=== PATIENT | female | born 1950 | race Caucasian/White ===

== ENCOUNTER 2021-05-30 16:04 | Emergency (ER) | payer OTHER, SELFPAY ==
--- NOTE | ~2021-05-30 | XR_ITS ---
EXAMINATION: XR CHEST CLINICAL INFORMATION: Resolved chest pain COMPARISON: None TECHNIQUE: Frontal view of the chest was obtained. FINDINGS: A moderate-sized hiatal hernia is present. No other significant abnormality is noted involving the heart, lungs, mediastinum, bony thorax or soft tissues. XR/XR chest 1V IMPRESSION: Moderate-sized hiatal hernia. No acute intrathoracic disease.
[2021-05-30 16:31] VITALS: BP 146/54; BP 162/82; PULSE 76; PULSE 84; RESP 18; TEMP 37.1; O2SAT 95; BMI 31.3
--- NOTE | 2021-05-30 16:39 | ECG_ITS ---
Test Reason : CHEST PAIN Blood Pressure : / mmHG Vent. Rate : 074 BPM Atrial Rate : 074 BPM P-R Int : 166 ms QRS Dur : 084 ms QT Int : 394 ms P-R-T Axes : 051 011 020 degrees QTc Int : 437 ms Normal sinus rhythm Normal ECG No previous ECGs available Referred By: Deep Dumont Electronically Signed By:KATERINE ANGULO
--- NOTE | 2021-05-30 16:41 | ED.CHESTPAIN ---
HPI - Chest Pain General Chief Complaint: Chest Pain Stated Complaint: tingling hands/chest discomfort Time Seen by Provider: 05/30/21 16:10 Source: patient Mode of arrival: ambulatory Limitations: no limitations History of Present Illness HPI narrative: 70 yold female with pmh of HTN and DM presents to the ED for chest pain descirbed as burning sensation and feeling full in chest after eating food and doing some cleaning afterwards. Patient states this occurred couple of hours ago. patient states she had bilateral tingling in both hand when this occurred. Patient denies any shortness of breath, fever, chills coughing, tearing chest pain radiating to the back, calf pain, leg swelling, pleureitc chest pain, recent trauma, slurred speech, dizziness, headache, slurred speech, paralysis of extremities, facial droop, or loss of vision. Patient states actually feeling better and chest pain discomfort as signicantly improved. Patient states vaccinated with dafne HERNANDEZ complaint: chest discomfort Related Data Allergies Allergy/AdvReac Type Severity Reaction Status Date / Time aspirin [ASA] Allergy Vomiting Verified 05/30/21 16:39 chlorpromazine Allergy Anaphylaxis Verified 05/30/21 16:39 [From Thorazine] lithium Allergy Anaphylaxis Verified 05/30/21 16:39 Review of Systems Review of Systems: significantly improvined chest pain and tinglin in both hands Yes all other systems are reviewed and are negative REPLACED BY [facility] Past Medical History Medical History (Updated 05/31/21 @ 00:01 by Background Daemon) Depressed High cholesterol HTN (hypertension) Osteoporosis Social History Social History Alcohol intake: current Alcohol intake frequency: a few times a month Patient Tobacco Use Status: Never used Tobacco Use of substances other than those prescribed or required for medical reasons: No Advance Directives: Yes Advance Directives Information Provided: No Advance Directives on File: No Physical Exam Vital Signs: Vital Signs: Last Vital Signs Temp 98.7 F 05/30/21 20:13 Pulse 68 05/30/21 20:13 Resp 20 05/30/21 20:13 BP 167/78 H 05/30/21 20:13 Pulse Ox 94 05/30/21 20:13 BMI result Body Mass Index 31.3 Const: General: cooperative, healthy appearing, comfortable, no acute distress, well developed, alert, awake and Physically active Orientation/consciousness: oriented to person, oriented to place, oriented to time and patient oriented x3 HENMT: Head: Yes normal to inspection, Yes No palpable skull fracture present, Yes normocephalic and Yes atraumatic Eyes: General: appearance normal, both eyes and all related structures Neck: Neck: Yes normal visual inspection, Yes full ROM, Yes no lymphadenopathy, Yes no meningeal signs, Yes trachea midline, Yes supple, No anterior neck swelling and No tender Chest: Chest palpation & inspection: normal inspection of the chest and normal palpation of entire chest wall Resp: Effort & Inspection: normal respiratory effort and able to speak in complete sentences Auscultation: clear to auscultation bilaterally Cardio: Jugular venous distension: no JVD Heart sounds: S1 normal heart sound present and S2 normal heart sound present GI: Inspection: Yes normal to inspection and No abdominal wall ecchymosis Palpation (GI): Soft to palpation, not firm, nontender, no guarding and not rigid : General: No CVA tenderness and Yes no CVA tenderness Back/Spine/Pelvis: Back: no CVA tenderness, No CVA tenderness and No back tenderness Skin: General skin exam: no rashes or lesions noted and elasticity normal Neuro: Other: Negative facial droop. negative slurred speech. Negative pronator drift. All extremities equal strength and 5+. Finger to nose and rapid hand movement is intact General: oriented to person, oriented to place, oriented to time, patient oriented x3, gait normal, moves all extremities, Normal light touch and pain sensation, no meningeal signs, no focal motor deficits, CN's II-XI intact bilaterally and normal sensation to monofilament Cranial nerves: Yes CN's II-XII intact bilaterally Cognition (Neuro): normal cognition Gait exam (Neuro): Normal gait present Motor exam (neuro): 5/5 motor strength present throughout Coordination: [id number] test normal Romberg Test: Negative Extrem: Other: Bilateral lower extremities negative for swelling, pitting edema, or calf tenderness. General: Yes normal to inspection and Yes full ROM Psych: Appearance: grossly normal, well kempt and not disheveled Course Course Course Narrative: patient presently asymptomatic. Will do cardiac evaluation. NO need for head Ct scan. negative for any neuro deficits. not suspecting stroke. Anaphylaxis reaction to aspirin. will not give asprin Reevaluation(s) Reevaluation #1: EKG negative for STEMI. patient presently no in any distress and asymptomatic. Time: 17:20 Reevaluation #2: Patient talking cellphone and not in any distress. Patient presently denies any chest pain or any tingling in extremities. First troponin negative. BNP 113. COVID swab negative. Patient symptomatic Time: 18:12 Reevaluation #3: Second troponin did not increase by 50%. The patient is asymptomatic. Not suspecting NC. not suspecting PE. Patient has no risk factors for PE. Patient is not tachycardic or tachypneic. Patient has no history of cancer. Patient is not on any estrogen pills. Patient denies any leg swelling, calf pain, or pleuritic chest pain. Diagnosis atypical chest wall pain/resolved GERD. Time: 21:45 MDM - Chest Pain MDM Narrative Medical decision making narrative: Atypical chest pain Lab Data Result diagrams: 05/30/21 17:08 05/30/21 17:08 Labs: Lab Results 05/30/21 05/30/21 05/30/21 Range/Units 17:08 17:08 17:08 WBC 5.3 (4.8-10.8) X10*3/uL RBC 4.87 (4.20-5.50) X10*6/uL Hgb 14.3 (12.0-16.0) g/dl Hct 42.9 (37.0-47.0) % MCV 88.1 (80.0-98.0) fL MCH 29.4 (27.0-33.0) pg MCHC 33.3 (31.0-35.0) g/dl RDW 13.5 (11.0-16.0) % Plt Count 189 (160-400) X10*3/uL MPV 9.3 L (9.4-12.3) fL Immature Gran % (Auto) 0.2 (0.0-0.4) % Neut % (Auto) 71.9 (45-73) % Lymph % (Auto) 19.7 L (20-40) % [place]ard % (Auto) 7.0 (2-11) % Eos % (Auto) 0.4 (0-4) % Baso % (Auto) 0.8 (0-2) % Lymph # (Auto) 1.1 L (1.2-4.9) X10*3/uL [place] # (Auto) 0.4 (0.1-1.2) X10*3/uL Eos # (Auto) 0.0 (0.0-0.4) X10*3/uL Baso # (Auto) 0.0 (0.0-0.2) X10*3/uL Abs Immat Gran (auto) 0.01 (0.00-0.03) X10*3/uL Absolute Neuts (auto) 3.8 (2.0-8.3) x10*3/uL Absolute Nucleated RBC 0.000 (0.0-0.012) X10*3/uL Nucleated RBC % (auto) 0.0 (0.0-0.2) /100WBC PT 11.0 (9.9-13.0) SEC INR 1.0 (0.9-1.1) APTT 35.3 (24.1-38.0) SEC Sodium 141 (135-145) mmol/L Potassium 4.3 (3.3-5.1) mmol/L Chloride 106 (96-108) mmol/L Carbon Dioxide 28 (22-29) mmol/L Anion Gap 11 L (12-20) BUN 11 (9-16) mg/dL Creatinine 0.78 (0.5-1.4) mg/dL Estim Creat Clear Calc 54.0 Estimated GFR > 60 Random Glucose 87 (60-115) mg/dL Calcium 9.7 (8.4-10.2) mg/dL Total Bilirubin 0.5 (0.0-1.0) mg/dL AST 19 (5-31) U/L ALT 14 (0-31) U/L Alkaline Phosphatase 70 (39-117) U/L Total Creatine Kinase 67 (26-140) U/L Troponin I High Sens (<3.5-17.0) ng/L B-Natriuretic Peptide (<100) pg/mL Total Protein 6.6 (6.5-8.0) g/dL Albumin 4.1 (3.5-5.0) g/dL Lipase 36 (8-78) U/L COVID-19 ([facility]) (Negative) COVID-19 Clin Com 05/30/21 05/30/21 05/30/21 Range/Units 17:08 17:08 20:08 WBC (4.8-10.8) X10*3/uL RBC (4.20-5.50) X10*6/uL Hgb (12.0-16.0) g/dl Hct (37.0-47.0) % MCV (80.0-98.0) fL MCH (27.0-33.0) pg MCHC (31.0-35.0) g/dl RDW (11.0-16.0) % Plt Count (160-400) X10*3/uL MPV (9.4-12.3) fL Immature Gran % (Auto) (0.0-0.4) % Neut % (Auto) (45-73) % Lymph % (Auto) (20-40) % Seward % (Auto) (2-11) % Eos % (Auto) (0-4) % Baso % (Auto) (0-2) % Lymph # (Auto) (1.2-4.9) X10*3/uL [place]ard # (Auto) (0.1-1.2) X10*3/uL Eos # (Auto) (0.0-0.4) X10*3/uL Baso # (Auto) (0.0-0.2) X10*3/uL Abs Immat Gran (auto) (0.00-0.03) X10*3/uL Absolute Neuts (auto) (2.0-8.3) x10*3/uL Absolute Nucleated RBC (0.0-0.012) X10*3/uL Nucleated RBC % (auto) (0.0-0.2) /100WBC PT (9.9-13.0) SEC INR (0.9-1.1) APTT (24.1-38.0) SEC Sodium (135-145) mmol/L Potassium (3.3-5.1) mmol/L Chloride (96-108) mmol/L Carbon Dioxide (22-29) mmol/L Anion Gap (12-20) BUN (9-16) mg/dL Creatinine (0.5-1.4) mg/dL Estim Creat Clear Calc Estimated GFR Random Glucose (60-115) mg/dL Calcium (8.4-10.2) mg/dL Total Bilirubin (0.0-1.0) mg/dL AST (5-31) U/L ALT (0-31) U/L Alkaline Phosphatase (39-117) U/L Total Creatine Kinase (26-140) U/L Troponin I High Sens 7.6 8.5 (<3.5-17.0) ng/L B-Natriuretic Peptide 113 H (<100) pg/mL Total Protein (6.5-8.0) g/dL Albumin (3.5-5.0) g/dL Lipase (8-78) U/L COVID-19 ([facility]) Negative (Negative) COVID-19 Clin Com See Note ECG Data ECG #1: Interpretation: Normal sinus rhythm. Ventricular rate 74. Your interval 166. QRS 84. QTC 437. Negative STEMI Discharge Plan Discharge Clinical Impression: Atypical chest pain Patient Disposition: Home, Self-Care Instructions: Chest Pain (ED) Additional Instructions: Return to the ED immediately for worsening chest pain, shortness of breath, calf pain, coughing up blood, fever, chills, chest pain on inspiration, leg swelling, calf pain, or any other concerning symptoms. Please follow-up with your primary care provider. Your EKG and troponin came back negative for heart attack. Chest x-ray shows hiatal hernia. Chest x-ray negative for signs of heart failure. Your COVID swab came back negative. Interventions: ED Discharge Assessment Last Done: 05/30/21 21:58 Discharge Date/Time: 05/30/21 21:58 Print Language: Citizen Of [place]
[2021-05-30 17:17] LABS: MANUAL DIFF FLAG NO
[2021-05-30 17:21] LABS: Basophils Percent Auto 0.8 % (0-2); Eosinophils Percent Auto 0.4 % (0-4); Hematocrit 42.9 % (37.0-47.0); Hemoglobin 14.3 g/dl (12.0-16.0); Imm Gran Abs Auto 0.01 X10*3/uL (0.00-0.03); Imm Gran Pct Auto 0.2 % (0.0-0.4); Lymphocytes Absolute Auto 1.1 X10*3/uL (1.2-4.9); Lymphocytes Percent Auto 19.7 % (20-40); Mean Corpuscular HGB Conc 33.3 g/dl (31.0-35.0); Mean Corpuscular Hemoglobin 29.4 pg (27.0-33.0); Mean Corpuscular Volume 88.1 fL (80.0-98.0); Mean Platelet Volume 9.3 fL (9.4-12.3); Monocytes Absolute Auto 0.4 X10*3/uL (0.1-1.2); Neutrophils Absolute Auto 3.8 x10*3/uL (2.0-8.3); Neutrophils Percent Auto 71.9 % (45-73); Platelet Count 189 X10*3/uL (160-400); Red Blood Count 4.87 X10*6/uL (4.20-5.50); Red Cell Distribution Width 13.5 % (11.0-16.0); White Blood Count 5.3 X10*3/uL (4.8-10.8)
[2021-05-30 17:27] LABS: Partial Thromboplastin Time 35.3 SEC (24.1-38.0)
[2021-05-30 17:36] LABS: Alanine Aminotransferase 14 U/L (0-31); Albumin Level 4.1 g/dL (3.5-5.0); Alkaline Phosphatase 70 U/L (39-117); Anion Gap 11 (12-20); Aspartate Amino Transferase 19 U/L (5-31); Bilirubin Total 0.5 mg/dL (0.0-1.0); Blood Urea Nitrogen 11 mg/dL (9-16); Calcium 9.7 mg/dL (8.4-10.2); Carbon Dioxide 28 mmol/L (22-29); Chloride 106 mmol/L (96-108); Estimated Glomerular Filt Rate > 60; Glucose Random 87 mg/dL (60-115); Lipase 36 U/L (8-78); Potassium 4.3 mmol/L (3.3-5.1); Sodium 141 mmol/L (135-145); Total Protein 6.6 g/dL (6.5-8.0)
[2021-05-30 17:37] LABS: COVID-19 Test Negative (Negative); IDNOW Serial# 55D5AD1C
[2021-05-30 17:43] LABS: B Type Natriuretic Peptide 113 pg/mL (<100); Troponin-I High Sensitivity 7.6 ng/L (<3.5-17.0)
[2021-05-30 18:43] VITALS: BP 157/78; PULSE 68; PULSE 69; RESP 16; O2SAT 95
[2021-05-30 20:13] VITALS: BP 167/78; PULSE 68; RESP 20; TEMP 37.1; O2SAT 94
[2021-05-30 20:32] LABS: Troponin-I High Sensitivity 8.5 ng/L (<3.5-17.0)
== END 2021-05-30 21:58 | disposition home or self-care (01) ==
PROVIDERS: Physician Assistant; Emergency Provider Emergency Medicine Emergency Medical Services; PCP Internal Medicine
DX: R07.89 Other chest pain (principal); Z20.822 Contact with and (suspected) exposure to COVID-19; I10 Essential (primary) hypertension; E78.5 Hyperlipidemia, unspecified
CPT/HCPCS: 36415; 71045; 80053; 82550; 83690; 83880; 84484; 85025; 85610; 85730; 87635; 93005; 99283; 99285